=== PATIENT | male | born 1990 | race Two or more races ===

== ENCOUNTER 2016-12-31 21:55 | Emergency (ER) | payer OTHER ==
[2017-01-01] MEDS ORDERED: DOXYCYCLINE HYCLATE 100 MG TABLET PO ONE (01:19)
[2017-01-01] MEDS ORDERED: FAMOTIDINE 20 MG TABLET PO ONE (01:19)
[2017-01-01] MEDS ORDERED: PREDNISONE 20 MG TABLET PO ONE (01:19)
--- NOTE | 2017-01-01 01:23 | ER Document Report ---
HPI - HPI Patient complains to provider of: right hand swelling Pain Level: 3 Context: Patient is a 26-year-old male that comes emergency department for chief complaint of swelling to the right middle finger and hand. Patient states that he was pricked by the tail of a shrimp all at work a few hours prior to arrival , states that shortly after this he started having redness and swelling of his finger and hand, he denies history of the same. Patient denies any difficulty swallowing or breathing, he states that the area felt hot and tender but has improved since the initial swelling. He states he is up-to-date on his tetanus. He denies any past medical history. - DERM Skin Color: Normal Past Medical History - General Information source: Patient - Social History Smoking Status: Never Smoker Frequency of alcohol use: None Drug Abuse: None Lives with: Family Family History: Arthritis, DM, Hyperlipidemia, Hypertension, Malignancy Patient has suicidal ideation: No Patient has homicidal ideation: No - Medical History Medical History: Negative Renal/ Medical History: Denies: Hx Peritoneal Dialysis Surgical Hx: Negative - Immunizations Immunizations up to date: Yes Hx Diphtheria, Pertussis, Tetanus Vaccination: Yes - 01/02/13 [facility] Provider Document - CONSTITUTIONAL General Appearance: WD/WN, No Apparent Distress - INFECTION CONTROL TRAVEL OUTSIDE OF THE [place] IN LAST 30 DAYS: No - HEENT HEENT: Atraumatic, Normal ENT Exam - No airway compromise, no posterior pharynx swelling, Normocephalic - NECK Neck: Normal Inspection - RESPIRATORY Respiratory: Breath Sounds Normal, No Respiratory Distress O2 Sat by Pulse Oximetry: 98 - CARDIOVASCULAR Cardiovascular: Regular Rate, Regular Rhythm - GI/ABDOMEN Gastrointestinal: Abdomen Soft, Abdomen Non-Tender - BACK Back: Normal Inspection - MUSCULOSKELETAL/EXTREMETIES Musculoskeletal/Extremeties: Tender - There is no tenderness of the upper extremity but there is some slight swelling of the third digit of the right hand extending to the dorsum of the hand, there is what appears to be a tiny prick over the pad of the third digit of the right hand, no abnormal heat or significant erythema to the area, no other abnormalities noted Course - Re-evaluation Re-evalutation: There is no significant erythema or heat to the area but there is definitely some erythema and mild soft tissue swelling of the third digit of the right hand extending up to the dorsal aspect of the hand. Patient has full range of motion, normal sensation and capillary refill. Appears to be a localized inflammatory response. Patient covered with doxycycline because of the puncture , on examination there seems to be extremely low likelihood of any foreign body because of the tiny puncture and the small depth. Treated for the inflammatory response, discussed treatment, discussed return precautions in detail, patient states understanding and agreement. - Vital Signs Vital signs: Temp Pulse Resp BP Pulse Ox 97.8 F 69 18 132/83 H 98 12/31/16 22:20 12/31/16 22:20 12/31/16 22:20 12/31/16 22:20 12/31/16 22:20 Discharge - Discharge Clinical Impression: Finger swelling Condition: Stable Disposition: HOME, SELF-CARE Additional Instructions: There appears to be localized inflammatory response, there is potentially a shellfish allergy. When you get home take 50 mg benadryl. Take medications as prescribed, take the zyrtec for 7 days Return immediately if he develops any worsening swelling, spreading redness, difficulty breathing or swallowing, or any other concerning symptoms. Prescriptions: Cetirizine HCl [Zyrtec 10 mg Tablet] 1 tab PO DAILY #30 tablet Doxycycline Hyclate 100 mg PO BID #10 capsule Prednisone [Deltasone 10 mg Tablet] 10 mg PO ASDIR PRN #21 tablet PRN Reason: Forms: Return to Work
[2017-01-01 01:41] VITALS: BP 129/85
== END 2017-01-01 01:39 | disposition home or self-care (01) ==
LOC: ER 21:55
DX: M79.89 Other specified soft tissue disorders (principal)
CPT/HCPCS: 99283; J7512